=== PATIENT | female | born 1960 ===

== ENCOUNTER 2017-12-24 19:00 | Emergency (ER) | payer BC ==
[2017-12-24 19:10] VITALS: TEMP 98.3
[2017-12-24] MEDS ORDERED: Apap-Butalbital-Caffeine 325-50-40mg Tab PO STA (19:29)
[2017-12-24] MEDS ORDERED: Apap-Butalbital-Caffeine 325-50-40mg Tab ONE (19:35)
--- NOTE | 2017-12-24 19:55 | ED PDOC ---
HPI: Headache Time Seen by Provider: 12/24/17 19:15 Chief Complaint (Nursing): Headache History Per: Patient History/Exam Limitations: no limitations Onset/Duration Of Symptoms: Days Current Symptoms Are (Timing): Still Present Quality: Tightness, Pressure Associated Symptoms: Photophobia. denies: Nausea, Vomiting, Extremity Weakness Additional History Per: Patient, Family Additional Complaint(s): Hx of migraine GONZALEZ presenting with "migraine headache", states she's had it for the past 2 days, worsening, nonthunderclap, pressure-like, associated with photophobia. Denies nausea, vomiting. States she's suffered with migraines for many years and [facility] States since coming to the [place] she has not followed up with any physician and hasn't tried any other medications. Denies weakness, numbness, sudden-onset type of headache, fevers, neck stiffness. PMD: None Past Medical History Reviewed: Historical Data, Nursing Documentation, Vital Signs Vital Signs: Last Vital Signs Temp 98.3 F 12/24/17 19:05 Pulse 75 12/24/17 19:05 Resp 16 12/24/17 19:05 BP 123/77 12/24/17 19:05 Pulse Ox 99 12/24/17 19:05 - Medical History PMH: Migraine - Family History Family History: States: Hypertension - Home Medications Home Medications: Ambulatory Orders Medication Instructions Recorded Aspirin/Acetaminophen/Caffeine 1 each PO Q8 PRN #30 tablet 12/24/17 [Excedrin Migraine Geltab] - Allergies Allergies/Adverse Reactions: Allergies Allergy/AdvReac Type Severity Reaction Status Date / Time No Known Allergies Allergy Verified 12/24/17 19:05 Review of Systems ROS Statement: Except As Marked, All Systems Reviewed And Found Negative Neurological: Positive for: Headache Physical Exam - Reviewed Nursing Documentation Reviewed: Yes Vital Signs Reviewed: Yes - Physical Exam Appears: Positive for: Well, Non-toxic, No Acute Distress Head Exam: Positive for: ATRAUMATIC, NORMAL INSPECTION, NORMOCEPHALIC Skin: Positive for: Normal Color, Warm, DRY Eye Exam: Positive for: EOMI, Normal appearance, PERRL ENT: Positive for: Normal ENT Inspection Neck: Positive for: Normal, Painless ROM Cardiovascular/Chest: Positive for: Regular Rate, Rhythm Respiratory: Positive for: CNT, Normal Breath Sounds Gastrointestinal/Abdominal: Positive for: Normal Exam, Soft Back: Positive for: Normal Inspection Extremity: Positive for: Normal ROM Neurologic/Psych: Positive for: Alert, community service coordinator II-XII, Oriented, Mood/Affect (Normal), Cerebellar Tests (Normal), Gait (Normal). Negative for: Motor/Sensory Deficits, Aphasia, Facial Droop - ECG O2 Sat by Pulse Oximetry: 99 Pulse Ox Interpretation: Normal Medical Decision Making Medical Decision MakinPM Patient presenting with headache x 2 days --Very well appearing, normal vitals, normal exam --Patient likely suffering from exacerbation of chronic migraine --Unlikely pathological headache such as SAH, meningitis, mass given history and well appearance --Will treat with Fioricet and re-eval 845PM --Patient is feeling much better --Referral given to [facility] --Well appearing upon discharge Disposition - Clinical Impression Clinical Impression: Headache - Disposition Referrals: [facility] [Outside] Disposition: Routine/Home Disposition Time: 20:45 Condition: IMPROVED Prescriptions: Aspirin/Acetaminophen/Caffeine [Excedrin Migraine Geltab] 1 each PO Q8 PRN #30 tablet PRN Reason: Pain, Moderate (4-7) Instructions: Migraine Headache (DC) Forms: [employer] (Grenadian) Print Language: ALGERIAN
[2017-12-24 21:10] VITALS: BP 127/78; PULSE 64; RESP 17; O2SAT 100
== END 2017-12-24 21:09 | disposition home or self-care (01) ==
LOC: H.ER 19:00
DX: R51 Headache (principal)

== ENCOUNTER 2018-02-08 14:58 | Emergency (ER) | payer BC ==
[2018-02-08 15:10] VITALS: RESP 16
[2018-02-08 16:00] LABS: BASO % 0.9 % (0.0-2.0); EOS # 0.1 K/uL (0.0-0.7); EOS % 1.4 % (0.0-4.0); HEMOGLOBIN 12.4 g/dL (12.0-16.0); LYMPH # 2.4 K/uL (1.0-4.3); LYMPH % 44.4 % (20.0-40.0); MEAN CELL VOLUME 89.3 fl (81.0-99.0); MEAN CORPUSCULAR HEMOGLOBIN 29.5 pg (27.0-31.0); MEAN CORPUSCULAR HGB CONC 33.1 g/dL (33.0-37.0); MEAN PLATELET VOLUME 8.6 fl (7.2-11.7); MONO # 0.4 K/uL (0.0-0.8); MONO % 7.7 % (0.0-10.0); NEUT # 2.5 K/uL (1.8-7.0); NEUT % 45.6 % (50.0-75.0); NRBC % 0.1 % (0.0-0.0); RBC 4.2 Mil/uL (3.80-5.20); RED CELL DISTRIBUTION WIDTH 14.1 % (11.5-14.5); WHITE BLOOD COUNT 5.4 K/uL (4.8-10.8)
[2018-02-08 16:13] LABS: ALB/GLOB RATIO 1.3 (1.0-2.1); ALBUMIN 4.3 g/dL (3.5-5.0); ALT/SGPT 28 U/L (9-52); AST/SGOT 27 U/L (14-36); BLOOD UREA NITROGEN 18 mg/dl (7-17); CALCIUM 9.4 mg/dL (8.4-10.2); GFR NON-AFRICAN AMERICAN > 60
--- NOTE | 2018-02-08 16:51 | ED PDOC ---
HPI: Headache Time Seen by Provider: 02/08/18 15:14 Chief Complaint (Nursing): Weakness/Neurological Deficit Chief Complaint (Provider): Weakness/Neurological Deficit History Per: Patient History/Exam Limitations: no limitations Onset/Duration Of Symptoms: Days (x3 days) Current Symptoms Are (Timing): Still Present Additional Complaint(s): Monica Leon is a 57 year old female with no past medical history, who presents to the emergency department complaining of headache, associated with bilateral arm paraesthesia neck pain, and weakness, onset x3 days ago. Patient states that she has been taking Tylenol with minimal relief. She states that she does have some light headedness and states she has a lot of stress because of her undocumented status and inability to work. Patient states she has a history of migraines but he were never associated with weakness in the arms. She denies any fever, chest pain, nausea, vomiting or trauma. PMD: no provider Past Medical History Reviewed: Historical Data, Nursing Documentation, Vital Signs Vital Signs: Last Vital Signs Temp 98.4 F 02/08/18 15:08 Pulse 75 02/08/18 15:08 Resp 16 02/08/18 15:08 BP 124/77 02/08/18 15:08 Pulse Ox 98 02/08/18 15:08 - Medical History PMH: No Chronic Diseases, Migraine - Surgical History Surgical History: - Family History Family History: States: Hypertension - Social History Ex-Smoker (has not smoked in the last 12 months): No Alcohol: None Drugs: Denies - Home Medications Home Medications: Ambulatory Orders Medication Instructions Recorded Aspirin/Acetaminophen/Caffeine 1 each PO Q8 PRN #30 tablet 12/24/17 [Excedrin Migraine Geltab] Acetaminophen/Butalbital/Caf 1 tab PO TID PRN #20 tab 02/08/18 [Fioricet] - Allergies Allergies/Adverse Reactions: Allergies Allergy/AdvReac Type Severity Reaction Status Date / Time No Known Allergies Allergy Verified 02/08/18 15:07 Review of Systems ROS Statement: Except As Marked, All Systems Reviewed And Found Negative Constitutional: Negative for: Fever Cardiovascular: Negative for: Chest Pain Gastrointestinal: Negative for: Nausea, Vomiting Musculoskeletal: Positive for: Neck Pain, Arm Pain (paresthesia bilaterally) Neurological: Positive for: Weakness, Headache Physical Exam - Reviewed Nursing Documentation Reviewed: Yes Vital Signs Reviewed: Yes - Physical Exam Appears: Positive for: Well, No Acute Distress Head Exam: Positive for: ATRAUMATIC, NORMOCEPHALIC Skin: Positive for: Warm, Dry Eye Exam: Positive for: EOMI, PERRL. Negative for: Nystagmus ENT: Negative for: Pharyngeal Erythema, Tonsillar Exudate Neck: Positive for: Painless ROM, Supple Cardiovascular/Chest: Positive for: Regular Rate, Rhythm. Negative for: Murmur Respiratory: Positive for: Normal Breath Sounds. Negative for: Respiratory Distress Gastrointestinal/Abdominal: Positive for: Soft. Negative for: Tenderness Back: Positive for: Normal Inspection. Negative for: Muscle Spasm Extremity: Positive for: Normal ROM. Negative for: Deformity Lymphatic: Negative for: Adenopathy Neurologic/Psych: Positive for: Alert, termite treater II-XII (intact), Oriented (x3), Other (normal cerebellar testing). Negative for: Motor/Sensory Deficits - Laboratory Results Result Diagrams: 02/08/18 15:54 02/08/18 15:54 - ECG O2 Sat by Pulse Oximetry: 98 (RA) Pulse Ox Interpretation: Normal Medical Decision Making Medical Decision Making: Time: 1545 Impression: Headache, paresthesias Differential diagnosis includes but is not limited to migraine, headache, stress, intracranial mass, electrolyte abnormality and anemia Plan: --CT head without contrast --Cmp --Magnesium --Phosphorous --EKG --ED urine dipstick --EKG --Toradol 15 mg IVP --Cbc with differential Accession No. : [id number] Patient Name / ID : REGULO ALMEIDA D / [id number] Exam Date : 02/08/2018 16:22:43 ( Approved ) Study Comment : Sex / Age : F / 57Y Creator : Grzegorz Duke MD Dictator : Grzegorz Duke MD Lead Software Architect : Route Sales Driver : Grzegorz Duke MD Approver2 : Report Date : 02/08/2018 17:13:18 My Comment : Date of service: 02/08/2018 PROCEDURE: CT HEAD WITHOUT CONTRAST. HISTORY: headache parasthesia COMPARISON: None available. TECHNIQUE: Axial computed tomography images were obtained through the head/brain without intravenous contrast. Radiation dose: Total exam DLP = 735.47 mGy-cm. This CT exam was performed using one or more of the following dose reduction techniques: Automated exposure control, adjustment of the mA and/or kV according to patient size, and/or use of iterative reconstruction technique. FINDINGS: HEMORRHAGE: No intracranial hemorrhage. BRAIN: No mass effect or edema. No atrophy or chronic microvascular ischemic changes. VENTRICLES: Unremarkable. No hydrocephalus. CALVARIUM: Unremarkable. PARANASAL SINUSES: Unremarkable as visualized. No significant inflammatory changes. MASTOID AIR CELLS: Unremarkable as visualized. No inflammatory changes. OTHER FINDINGS: None. IMPRESSION: Normal CT of the Head. NO INTRACRANIAL MASS, HEMORRHAGE OR EVIDENCE OF ACUTE INFARCT.\ On reeval pt feels better. Labs and CT unremarkable. Stable for discharge. Scribe Attestation: Documented by Donte Dominguez, acting as a scribe for Geneva Villalpando MD. Provider Scribe Attestation: All medical record entries made by the Scribe were at my direction and personally dictated by me. I have reviewed the chart and agree that the record accurately reflects my personal performance of the history, physical exam, medical decision making, and the department course for this patient. I have also personally directed, reviewed, and agree with the discharge instructions and disposition. Disposition - Clinical Impression Clinical Impression: Headache, Paresthesia Counseled Patient/Family Regarding: Studies Performed, Diagnosis - Disposition [facility] Popeye Childress MD [Medical Doctor] - Disposition: Routine/Home Disposition Time: 18:50 Condition: STABLE Prescriptions: Acetaminophen/Butalbital/Caf [Fioricet] 1 tab PO TID PRN #20 tab PRN Reason: Headache Instructions: Headache, Adult (DC), Paresthesias (DC) Print Language: TURKISH
--- NOTE | 2018-02-08 17:16 | CT ---
Date of service: 02/08/2018 PROCEDURE: CT HEAD WITHOUT CONTRAST. HISTORY: headache parasthesia COMPARISON: None available. TECHNIQUE: Axial computed tomography images were obtained through the head/brain without intravenous contrast. Radiation dose: Total exam DLP = 735.47 mGy-cm. This CT exam was performed using one or more of the following dose reduction techniques: Automated exposure control, adjustment of the mA and/or kV according to patient size, and/or use of iterative reconstruction technique. FINDINGS: HEMORRHAGE: No intracranial hemorrhage. BRAIN: No mass effect or edema. No atrophy or chronic microvascular ischemic changes. VENTRICLES: Unremarkable. No hydrocephalus. CALVARIUM: Unremarkable. PARANASAL SINUSES: Unremarkable as visualized. No significant inflammatory changes. MASTOID AIR CELLS: Unremarkable as visualized. No inflammatory changes. OTHER FINDINGS: None. IMPRESSION: Normal CT of the Head. NO INTRACRANIAL MASS, HEMORRHAGE OR EVIDENCE OF ACUTE INFARCT.
[2018-02-08 19:13] VITALS: BP 120/71; PULSE 71; TEMP 97.7
--- NOTE | 2018-02-10 00:11 | CARD ---
APPROVED REPORT Date of service: 02/08/2018 EKG Measurement Heart [id number] UT [id number] <Conclusion> Sinus rhythm with short UT Otherwise normal ECG
[2018-02-13 15:50] VITALS: O2SAT 98
== END 2018-02-08 19:12 | disposition home or self-care (01) ==
LOC: H.ER 14:58
DX: R51 Headache (principal); R20.2 Paresthesia of skin